=== PATIENT | female | born 1995 | race American Indian/Alaskan Native ===

== ENCOUNTER 2017-04-06 08:25 | Inpatient (IN) | payer MEDICAID ==
[2017-04-06 08:56] LABS: Urine Drugs of Abuse Note Disclamer
[2017-04-06 09:11] LABS: Bacteria,Urine 1+ /HPF (Negative); Bilirubin,Urine NEG (Negative); Blood,Urine NEG (Negative); Ketones,Urine NEG (Negative); Leukocyte Esterase,Urine LG (Negative); Mucus,Urine FEW /HPF; Nitrite,Urine NEG (Negative); Protein,Urine <15 mg/dL mg/dL (Negative); Urobilinogen,Urine < 2.0 mg/dL (<2.0)
--- NOTE | 2017-04-06 09:34 | History and Physical Report ---
History of Present Illness Date of examination: 04/06/17 Chief complaint: Painful contractions History of present illness: 21-year-old 001 at ~ 37+5 weeks presents with painful contractions, she is a drop-in patient with care with Dr. Daniels. In triage, no heart tones detected. Sonogram confirms no heart tones, IUFD. 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 denies: smoking, alcohol abuse, prescription drug abuse, IV drug use - Obstetrical History Expected Date of Delivery: 04/22/17 Actual Gestation: 37 Week(s) 5 Day(s) : 2 Para: 1 Number of Living Children: 1 Medications and Allergies Allergies Allergy/AdvReac Type Severity Reaction Status Date / Time No Known Allergies Allergy Verified 02/01/16 15:20 Review of Systems Constitutional: no fever, no chills, no fatigue, no weakness, no malaise, no lethargy, no chronic headaches Cardiovascular: no chest pain, no orthopnea, no palpitations, no rapid/ irregular heart beat, no syncope, no lightheadedness, no shortness of breath, no dyspnea on exertion, no paroxysmal nocturnal dyspnea, no high blood pressure Respiratory: no cough, no cough with sputum, no shortness of breath, no dyspnea on exertion Gastrointestinal: no abdominal pain, no nausea, no vomiting Genitourinary: contractions, no vaginal bleeding, no vaginal discharge, no leakage of fluid - Vital Signs Vital signs: Vital Signs Pulse Pulse Ox 87 98 04/06/17 08:49 04/06/17 08:49 Temp Pulse Resp BP Pulse Ox 98.0 F 146 H 18 122/77 100 04/06/17 08:55 04/06/17 09:24 04/06/17 08:55 04/06/17 08:50 04/06/17 09:24 - Physical Exam Cardiovascular: Regular rate, Normal S1, Normal S2 Lungs: Positive: Clear to auscultation, Normal air movement Abdomen: Positive: normal appearance, soft. Negative: distention, tenderness, guarding, rigidity Genitourinary (Female): Positive: normal external genitalia Vulva: both: normal Uterus: Positive: enlarged (EFW ~ 3500) Adnexa: both: normal Extremities: Positive: normal - Obstetrical FHR: other (No FHT) Cervical Dilatation: 5.5 station: -2 Results Abnormal lab results 04/06/17 Range/Units 08:30 Urine WBC (Auto) 8.0 H (0.0-6.0) /HPF U Epithel Cells (Auto) 18.0 H (0-13.0) /HPF All other labs normal. Assessment and Plan A: 21-year-old 001 at 37+5 with IUFD P: -Admit -Routine Labs -Epidural prn -Obtain records -Anticipate - Patient Problems (1) 37 weeks gestation of Current Visit: Yes Status: Acute (2) IUFD (intrauterine ) Current Visit: Yes Status: Acute
[2017-04-06] MEDS ORDERED: BRETHINE IVP PRN (09:35)
[2017-04-06] MEDS ORDERED: BRETHINE SUB-Q PRN (09:35)
[2017-04-06] MEDS ORDERED: XYLOCAINE 2% INFILTRATI ONE (09:35)
--- NOTE | 2017-04-06 09:57 | Ultrasound Report ---
OB LIMITED INDICATION: Verify heart tones. Unable to locate heart rate. COMPARISON: None similar at this institution. TECHNIQUE: Transabdominal grayscale ultrasound with Doppler interrogation. Gestation: Hernandez position: Cephalic Heart Rate: 0 BPM CONCLUSION: No heart tones obtainable, supporting clinical suspicion of demise. Please correlate.
[2017-04-06] MEDS ORDERED: ePHEDrine SULFATE IV PRN (10:00)
[2017-04-06] MEDS ORDERED: PITOCin/NS 30 UNIT/500ML 30 UNITS/500 ML BAG IV SCH ×2 (10:00)
[2017-04-06] MEDS ORDERED: PITOCin/NS 20 UNIT/1000ML DRIP 20 UNITS/1,000 ML BAG IV SCH ×2 (10:00→14:00)
[2017-04-06] MEDS ORDERED: LACTATED RINGERS 1,000 ML IV SCH (10:00)
[2017-04-06] MEDS: SUBLIMAZE IV PRN ×2 (11:00→12:55)
[2017-04-06 11:02] LABS: Hematocrit 32.9 % (30.3-42.9); Hemoglobin 10.8 gm/dl (10.1-14.3); Mean Corpuscular HGB Conc 33 % (30-34); Mean Corpuscular Hemoglobin 26 pg (28-32); Mean Corpuscular Volume 80 fl (79-97); Platelet Count 203 K/mm3 (140-440); Red Blood Count 4.13 M/mm3 (3.65-5.03); Red Cell Distribution Width 13.9 % (13.2-15.2); White Blood Count 9.3 K/mm3 (4.5-11.0)
[2017-04-06] MEDS ORDERED: fentaNYL-BUPIV 2 MCG/ML-0.125% 200 MCG/100 ML BAG EPIDURAL ONE (11:53)
[2017-04-06 12:08] LABS: HIV-1 Antigen p24 Non React (Non React); HIVR-1/2 Ab Non React (Non React)
[2017-04-06] MEDS ORDERED: XYLOCAINE MPF 2% ONE (12:18)
--- NOTE | 2017-04-06 13:11 | Procedure Note ---
OB Delivery Note - Delivery Date of Delivery: 04/06/17 Surgeon: LOUANN KINNEY Estimated blood loss: <100cc - Vaginal Delivery presentation: vertex Delivery position: OA Delivery induction: none Delivery augmentation: pitocin Delivery monitor: none Route of delivery: Delivery placenta: spontaneous Delivery cord: 3 umbilical vessels Episiotomy: none Delivery laceration: none Anesthesia: epidural Delivery comments: Delivery of term over intact perineum, Apgars 0 and 0. Patient with no obvious dysmorphic features, appears macerated and edematous consistent with demise of some duration. Small placenta with no obvious sign of abruption - Infant A at 1 minute: 0 (time of was 12:16, infant weight was 4 pounds 11 or 2142 g) at 5 minutes: 0 Gender: Female (IUFD at term)
[2017-04-06] MEDS ORDERED: ZOFRAN IV PRN (13:14)
[2017-04-06] MEDS ORDERED: DULCOLAX PR PRN (13:14)
[2017-04-06] MEDS ORDERED: TYLENOL PO PRN (13:14)
[2017-04-06] MEDS ORDERED: BENADRYL PO PRN (13:14)
[2017-04-06] MEDS ORDERED: LANSINOH TP PRN (13:14)
[2017-04-06] MEDS ORDERED: TUCKS PAD TP PRN (13:14)
[2017-04-06] MEDS ORDERED: MILK OF MAGNESIA PO PRN (13:14)
[2017-04-06] MEDS ORDERED: PHENERGAN PO PRN (13:14)
[2017-04-06] MEDS ORDERED: PHENERGAN PR PRN (13:34)
--- NOTE | 2017-04-06 13:50 | Event Note ---
Date: 04/06/17 Just obtained records from patient's provider. It appears she had limited care, first visit to her provider was at 35 weeks gestation and she had only 1 visit.
[2017-04-06] MEDS ORDERED: SODIUM CHLORIDE FLUSH SYRINGE 10 ML IV SCH (14:00)
--- NOTE | 2017-04-06 15:00 | Anesthesia Consultation ---
Anesthesia Consult and Med Hx Date of service: 04/06/17 - Airway Anesthetic Teeth Evaluation: Good ROM Head & Neck: Adequate Mental/Hyoid Distance: Adequate Mallampati Class: Class II Intubation Access Assessment: Probably Good - Pre-Operative Health Status ASA Pre-Surgery Classification: ASA3 Proposed Anesthetic Plan: Epidural, Spinal - Pulmonary Hx Asthma: No COPD: No Hx Pneumonia: No - Cardiovascular System Hx Hypertension: No - Central Nervous System Hx Seizures: No Hx Psychiatric Problems: No - Endocrine Hx Renal Disease: No Hx End Stage Renal Disease: No Hx Hypothyroidism: No Hx Hyperthyroidism: No - Hematic Hx Anemia: No Hx Sickle Cell Disease: No - Other Systems Hx Alcohol Use: No Hx Obesity: Yes (BMI 46.1)
[2017-04-06] MEDS: MOTRIN PO SCH ×2 (17:45→18:00)
[2017-04-06] MEDS: NORCO 5/325 PO PRN (20:33)
[2017-04-06] MEDS: SENOKOT S PO SCH (22:00)
[2017-04-06] MEDS ORDERED: MINERAL OIL PO PRN (22:00)
[2017-04-06] MEDS: FEOSOL PO SCH (22:00)
[2017-04-06] MEDS: COLACE PO SCH (22:00)
[2017-04-07] MEDS: FEOSOL PO SCH ×3 (00:45→21:58)
[2017-04-07] MEDS: MOTRIN PO SCH ×7 (00:45→21:57)
[2017-04-07] MEDS: COLACE PO SCH ×2 (00:46→21:57)
[2017-04-07 02:17] LABS: Hematocrit 30.4 % (30.3-42.9); Hemoglobin 9.8 gm/dl (10.1-14.3)
[2017-04-07] MEDS: NORCO 5/325 PO PRN ×3 (08:15→21:56)
[2017-04-07] MEDS: PRENATAL VITAMIN PO SCH (10:33)
--- NOTE | 2017-04-07 12:07 | Progress Note ---
Assessment and Plan PPD# 1 21-year-old 001 at 37+5 with IUFD P: -Continue routine care -Anticipate discharge in 24-48 hours - Patient Problems (1) (normal spontaneous vaginal delivery) Current Visit: Yes Status: Acute (2) 37 weeks gestation of Current Visit: Yes Status: Acute (3) IUFD (intrauterine ) Current Visit: Yes Status: Acute Subjective - Subjective Date of service: 04/07/17 Principal diagnosis: PPD# 1 Interval history: Since then examined, stable doing well. No further events of breath or chest pain no fever or chills, ambulating without difficulty adequate bowel bladder function Patient reports: appetite normal, voiding normally, pain well controlled, ambulating normally, no dizzy ambulation, no nauseated [place]: Objective - Vital Signs Latest vital signs: Vital Signs Temp Pulse Resp BP BP Pulse Ox 04/07/17 08:15 98.3 F 75 20 115/52 100 04/07/17 04:15 98.6 F 81 18 123/81 04/07/17 00:00 98.6 F 71 16 101/78 04/06/17 20:00 98.6 F 71 16 123/65 04/06/17 17:33 98.8 F 96 H 24 123/75 100 04/06/17 14:45 98.6 F 88 16 100/60 04/06/17 14:26 86 141/84 04/06/17 13:54 14 04/06/17 13:42 92 H 140/69 04/06/17 13:16 94 H 124/83 04/06/17 13:01 105 H 132/86 04/06/17 12:55 14 Intake and Output 04/06/17 04/07/17 04/07/17 23:59 07:59 15:59 Intake Total 750 120 Output Total 400 Balance -400 750 120 Intake: Oral 450 120 Intake, Free Water 300 Output: Urine 400 Void 400 Other: Total, Intake Amount 200 120 Total, Output Amount 400 # Voids Void 1 - Exam Abdomen: Present: normal appearance, soft. Absent: distention, tenderness, guarding, rigidity Uterus: Present: firm, fundal height below umbilicus. Absent: tenderness Extremities: Present: normal - Labs Labs: Abnormal lab results 04/07/17 Range/Units 01:35 Hgb 9.8 L (10.1-14.3) gm/dl
--- NOTE | 2017-04-07 12:08 | Discharge Summary ---
Providers - Providers Date of Admission: 04/06/17 09:46 Date of discharge: 04/08/17 Attending physician: LOUANN KINNEY Primary care physician: COTTON CHOPPER Hospitalization Reason for admission: active labor, IUFD Delivery: Episiotomy: none Laceration: none Other procedures: none complications: none Discharge diagnosis: intrapartum demise (at 37+5 weeks) baby: female (IUFD) Hospital course: Uncomplicated hospital course Condition at discharge: Good Disposition: DC-01 TO HOME OR SELFCARE - Discharge Diagnoses (1) (normal spontaneous vaginal delivery) Status: Acute (2) 37 weeks gestation of Status: Acute (3) IUFD (intrauterine ) Status: Acute Plan - Provider Discharge Summary Activity: no sex for 6 weeks, no heavy lifting 4 weeks, no strenuous exercise Diet: routine Additional instructions: [] Smoking cessation referral if applicable(refer to patient education folder for contact #) [] Refer to [facility] Call your doctor immediately for: * Fever > 100.5 * Heavy vaginal bleeding ( >1 pad per hour) * Severe persistent headache * Shortness of breath * Reddened, hot, painful area to leg or breast * Drainage or odor from incision. * Keep incision clean and dry at all times and follow doctor's instructions regarding bathing/showering - Follow up plan Follow up: PRIMARY CARE, [Primary Care Provider] - 7 Days
[2017-04-07] MEDS: SENOKOT S PO SCH (21:57)
[2017-04-08] MEDS: MOTRIN PO SCH (04:30)
[2017-04-08] MEDS: NORCO 5/325 PO PRN ×2 (04:30→10:56)
[2017-04-08 08:51] VITALS: BP 121/48
[2017-04-08] MEDS: COLACE PO SCH (10:56)
[2017-04-08] MEDS: PRENATAL VITAMIN PO SCH (10:56)
[2017-04-08] MEDS: FEOSOL PO SCH (10:56)
== END 2017-04-08 13:20 | disposition home or self-care (01) | DRG 775 ==
LOC: TRG 08:25 → LD 09:46 → OB 14:59
PROVIDERS: ADMIT Obstetrics & Gynecology Gynecology; ATTEND Obstetrics & Gynecology Gynecology
PROC: 10E0XZZ Delivery of Products of Conception, External Approach (ICD-10-PCS; principal; 2017-04-06)
PROC: 3E0R3BZ Introduction of Anesthetic Agent into Spinal Canal, Percutaneous Approach (ICD-10-PCS; 2017-04-06)
PROC: 00HU33Z Insertion of Infusion Device into Spinal Canal, Percutaneous Approach (ICD-10-PCS; 2017-04-06)
DX: O36.4XX0 Maternal care for intrauterine death, not applicable or unspecified (principal); O99.214 Obesity complicating childbirth; E66.9 Obesity, unspecified; Z37.1 Single stillbirth; Z3A.37 37 weeks gestation of pregnancy; Z68.42 Body mass index [BMI] 45.0-49.9, adult
CPT/HCPCS: 36415; 76815; 80307; 81001; 85014; 85018; 85027; 86592; 86706; 86762; 86850; 86900; 86901; 87806; 88307; J2590; J3010; J7120

== ENCOUNTER 2018-01-25 19:58 | Emergency (ER) | payer MEDICAID, OTHER ==
[2018-01-25] MEDS ORDERED: NACL 0.9% 1000 ML 1,000 ML IV ONE (20:19)
[2018-01-25 20:33] LABS: Basophils % (Auto) 0.5 % (0.0-1.8); Eosinophils # (Auto) 0.1 K/mm3 (0.0-0.4); Eosinophils % (Auto) 1.6 % (0.0-4.3); Hematocrit 32.4 % (30.3-42.9); Hemoglobin 10.8 gm/dl (10.1-14.3); Lymphocytes # (Auto) 1.5 K/mm3 (1.2-5.4); Lymphocytes % (Auto) 22.4 % (13.4-35.0); Mean Corpuscular HGB Conc 33 % (30-34); Mean Corpuscular Hemoglobin 26 pg (28-32); Mean Corpuscular Volume 78 fl (79-97); Monocytes # (Auto) 0.4 K/mm3 (0.0-0.8); Monocytes % (Auto) 5.9 % (0.0-7.3); Platelet Count 216 K/mm3 (140-440); Red Blood Count 4.15 M/mm3 (3.65-5.03); Red Cell Distribution Width 15.2 % (13.2-15.2)
[2018-01-25 21:07] LABS: Alanine Aminotransferase 5 units/L (7-56); Albumin 3.7 g/dL (3.9-5); BUN/Creatinine Ratio 12; Blood Urea Nitrogen 7 mg/dL (7-17); Hemolysis Index 1; Lipase 23 units/L (13-60)
[2018-01-25 21:09] LABS: Bilirubin,Urine NEG (Negative); Blood,Urine NEG (Negative); Color,Urine Yellow (Yellow); Mucus,Urine 3+ /HPF
[2018-01-25 21:12] LABS: RBC,Urine < 1.0 /HPF (0.0-6.0)
[2018-01-25] MEDS ORDERED: TYLENOL PO ONE (23:53)
--- NOTE | 2018-01-25 23:53 | Emergency Department Report ---
HPI - General Chief Complaint: Abdominal Pain Time Seen by Provider: 01/25/18 23:44 - HPI HPI: 22-year-old -Irish female presents to the emergency department with complaint of a 2 week history of some pelvic cramping and discomfort while . Patient had a positive home test around 2 weeks ago and has been having the symptoms since that time. She denies any vaginal bleeding, back pain, fever, nausea or vomiting. With this she is with one live child and one previous still . Her SIMONIZER is Dr. Deluca but she does not have an appointment until the . She has not taken anything for her symptoms prior to presentation. No recent travel or sick contacts at home. ED Past Medical Hx - Past Medical History Hx Hypertension: No Hx Congestive Heart Failure: No Hx Diabetes: No Hx Deep Vein Thrombosis: No Hx Renal Disease: No Hx Sickle Cell Disease: No Hx Seizures: No Hx Asthma: No Hx COPD: No Hx HIV: No Additional medical history: anemia - Social History Smoking Status: Never Smoker Substance Use Type: None - Medications Home Medications: Home Medications Medication Instructions Recorded Confirmed Last Taken Type Vit-Fe Fumar-FA [ 1 tab PO QDAY #30 tablet 01/26/18 Unknown Rx Vitamin] ED Review of Systems ROS: Stated complaint: PREG/UNKNOWN WKS/ABD PAIN Other details as noted in HPI Comment: All other systems reviewed and negative Constitutional: denies: chills, fever Eyes: denies: eye pain, eye discharge, vision change ENT: denies: ear pain, throat pain Respiratory: denies: cough, shortness of breath, wheezing Cardiovascular: denies: chest pain, palpitations Gastrointestinal: denies: nausea, vomiting Genitourinary: other (pelvic cramping / pain). denies: dysuria, discharge Musculoskeletal: denies: back pain, joint swelling, arthralgia Skin: denies: rash, lesions Neurological: denies: headache, weakness, paresthesias Physical Exam - Physical Exam Vital Signs: Vital Signs 01/25/18 01/25/18 20:07 20:16 Temperature 98.2 F 98.2 F Pulse Rate 72 65 Respiratory 18 18 Rate Blood Pressure 125/67 125/64 O2 Sat by Pulse 100 99 Oximetry Physical Exam: GENERAL: The patient is well-developed well-nourished. HENT: Normocephalic. Atraumatic. Patient has moist mucous membranes. EYES: Extraocular motions are intact. NECK: Supple. No meningitic signs are noted. There is no adenopathy noted. CHEST/LUNGS: Clear to auscultation. There is no respiratory distress noted. HEART/CARDIOVASCULAR: Regular. There is no tachycardia. There is no murmur. ABDOMEN: Abdomen is soft, nontender. Patient has normal bowel sounds. There is no abdominal distention. SKIN: Skin is warm and dry. NEURO: The patient is awake, alert, and oriented. The patient is cooperative. The patient has no focal neurologic deficits. The patient has normal speech. MUSCULOSKELETAL: There is no tenderness or deformity. There is no limitation range of motion. There is no evidence of acute injury. ED Course Vital Signs 01/25/18 01/25/18 20:07 20:16 Temperature 98.2 F 98.2 F Pulse Rate 72 65 Respiratory 18 18 Rate Blood Pressure 125/67 125/64 O2 Sat by Pulse 100 99 Oximetry ED Medical Decision Making - Lab Data Result diagrams: 01/25/18 20:22 01/25/18 20:22 - Radiology Data Radiology results: report reviewed EXAM: US OB TRANSVAGINAL HISTORY: preg, abd pain 1 TECHNIQUE: Transabdominal and transvaginal sonography of the pelvis. PRIORS: None. FINDINGS: There is a single, live intrauterine . Ultrasound estimated gestational age is 12 weeks 1 day. Ultrasound estimated date of confinement is 09 August 2018. heart motion is detected. The right ovary measures 8.1 x 6.4 x 7 cm and contains a rounded, cystic focus measuring approximately 6 cm and seen only on transabdominal examination. The left ovary measures 2.8 x 2.2 x 1.7 cm and is grossly unremarkable. Remainder of uterus and adnexa grossly unremarkable. IMPRESSION: 1. Single, live intrauterine . 2. Findings which may represent functional cystic change in the left ovary, but nonspecific. Clinical correlation and followup pelvic ultrasound in 6-10 weeks advised to document resolution. Transcribed By: ALYSE Dictated By: AMBROSIO IZAGUIRRE MD Electronically Authenticated By: AMBROSIO IZAGUIRRE MD Signed Date/Time: 01/26/18 0149 - Medical Decision Making Patient complains of about 2 weeks of pelvic cramping and a previous positive home urine test. No vaginal bleeding. Vital signs stable throughout her ED course. She has a healthy hormone level of 45,000. Transvaginal/obstetrical ultrasound was done that shows a single live intrauterine with a good heart rate detected. The rest patient' s labs are unremarkable as well. She has an appointment coming up with her OB/ [employer], Dr. Deluca. She will be started on vitamins. She has been encouraged to see the SIMONIZER in the next few days and to return to the emergency Department with any worsening of her symptoms, development of vaginal bleeding, or with any acute distress. - Differential Diagnosis , spontaneous miscarriage, threatened miscarriage, fibroids, UTI Critical Care Time: No Critical care attestation.: If time is entered above; I have spent that time in minutes in the direct care of this critically ill patient, excluding procedure time. ED Disposition Clinical Impression: Pelvic cramping Qualifiers: Weeks of gestation: 12 weeks Qualified Code(s): Z3A.12 - 12 weeks gestation of Disposition: - TO HOME OR SELFCARE Is pt being admited?: No Condition: Stable Instructions: (ED) Additional Instructions: Please follow-up with your SIMONIZER in the next few days if possible. I have started you on vitamins. You can take Tylenol every 4-6 hours, using weight-based dosing on the back of the bottle, as needed for discomfort. Otherwise do not take any other medications that are not prescribed or cleared by a physician. Return to the emergency Department with any worsening of your symptoms, development of vaginal bleeding, or with any acute distress. Prescriptions: Vit-Fe Fumar-FA [ Vitamin] 1 tab PO QDAY #30 tablet Referrals: LUISITO DELUCA MD [Referring] - 2-3 Days Time of Disposition: 02:00
[2018-01-26 00:59] VITALS: BP 122/62
--- NOTE | 2018-01-26 01:50 | Ultrasound Report ---
FINAL REPORT EXAM: US OB TRANSVAGINAL HISTORY: preg, abd pain 1 TECHNIQUE: Transabdominal and transvaginal sonography of the pelvis. PRIORS: None. FINDINGS: There is a single, live intrauterine . Ultrasound estimated gestational age is 12 weeks 1 day. Ultrasound estimated date of confinement is 09 August 2018. heart motion is detected. The right ovary measures 8.1 x 6.4 x 7 cm and contains a rounded, cystic focus measuring approximately 6 cm and seen only on transabdominal examination. The left ovary measures 2.8 x 2.2 x 1.7 cm and is grossly unremarkable. Remainder of uterus and adnexa grossly unremarkable. IMPRESSION: 1. Single, live intrauterine . 2. Findings which may represent functional cystic change in the left ovary, but nonspecific. Clinical correlation and followup pelvic ultrasound in 6-10 weeks advised to document resolution.
--- NOTE | 2018-01-26 01:51 | Ultrasound Report ---
FINAL REPORT EXAM: US OB < = 14 WEEKS FETUS HISTORY: preg, abd pain TECHNIQUE: Transabdominal sonography of the pelvis. PRIORS: None. FINDINGS: There is a single, live intrauterine . Ultrasound estimated gestational age is 12 weeks 1 day. Ultrasound estimated date of confinement is 09 August 2018. heart motion is detected. The right ovary measures 8.1 x 6.4 x 7 cm and contains a rounded, cystic focus measuring approximately 6 cm and seen only on transabdominal examination. The left ovary measures 2.8 x 2.2 x 1.7 cm and is grossly unremarkable. Remainder of uterus and adnexa grossly unremarkable. IMPRESSION: 1. Single, live intrauterine . 2. Findings which may represent functional cystic change in the right ovary, but nonspecific. Clinical correlation and followup pelvic ultrasound in 6-10 weeks advised to document resolution.
[2018-01-26] MEDS ORDERED: REGLAN ONE ×2 (02:25→02:26)
[2018-01-26] MEDS ORDERED: REGLAN PO ONE (02:25)
== END 2018-01-26 02:30 | disposition home or self-care (01) ==
LOC: ED 19:58
DX: O00.01 Abdominal pregnancy with intrauterine pregnancy (principal); Z3A.12 12 weeks gestation of pregnancy; Z86.2 Personal history of diseases of the blood and blood-forming organs and certain disorders involving the immune mechanism
CPT/HCPCS: 36415; 76801; 76817; 80053; 81001; 83690; 84702; 85025; 86900; 86901; 99284

== ENCOUNTER 2018-06-22 01:54 | Outpatient (CLI) | payer SELFPAY ==
[2018-06-22] MEDS ORDERED: LACTATED RINGERS 1,000 ML ONE (01:58)
[2018-06-22] MEDS ORDERED: LACTATED RINGERS 500 ML IV ONE (02:42)
[2018-06-22 03:27] LABS: Bilirubin,Urine NEG (Negative); Blood,Urine NEG (Negative); Color,Urine Amber (Yellow); Mucus,Urine 3+ /HPF
[2018-06-22 04:18] VITALS: BP 118/56
== END 2018-06-22 04:03 | disposition home or self-care (01) ==
LOC: TRG 01:54
PROVIDERS: ATTEND Obstetrics & Gynecology
DX: O47.03 False labor before 37 completed weeks of gestation, third trimester (principal); O10.013 Pre-existing essential hypertension complicating pregnancy, third trimester; Z3A.35 35 weeks gestation of pregnancy; Z87.891 Personal history of nicotine dependence
CPT/HCPCS: 59025; 81001; 96360; J7120

== ENCOUNTER 2018-06-24 14:19 | Outpatient (CLI) | payer SELFPAY ==
[2018-06-24 15:37] VITALS: BP 132/86
[2018-06-24] MEDS ORDERED: LACTATED RINGERS 500 ML IV ONE (15:46)
[2018-06-24 17:03] LABS: Bacteria,Urine 1+ /HPF (Negative); Bilirubin,Urine NEG (Negative); Blood,Urine NEG (Negative); Color,Urine Yellow (Yellow); Mucus,Urine 1+ /HPF; Protein,Urine <15 mg/dL mg/dL (Negative)
== END 2018-06-24 17:05 | disposition home or self-care (01) ==
LOC: TRG 14:19
PROVIDERS: ATTEND Obstetrics & Gynecology
DX: O47.03 False labor before 37 completed weeks of gestation, third trimester (principal); O10.013 Pre-existing essential hypertension complicating pregnancy, third trimester; Z3A.35 35 weeks gestation of pregnancy
CPT/HCPCS: 59025; 81001

== ENCOUNTER 2020-04-30 08:51 | Emergency (ER) | payer SELFPAY ==
[2020-04-30 09:07] VITALS: BP 118/84
[2020-04-30] MEDS ORDERED: SODIUM CHLORIDE 0.9% 1000 ML 1,000 ML IV ONE (09:31)
[2020-04-30] MEDS ORDERED: DICYCLOMINE 20 MG/2 ML INJ IM ONE (09:31)
[2020-04-30] MEDS ORDERED: ONDANSETRON 4 MG/2 ML INJ IV ONE (09:31)
--- NOTE | 2020-04-30 09:33 | Emergency Department Report ---
ED Abdominal Pain HPI - General Chief Complaint: Abdominal Pain Stated Complaint: STOMACH PAIN/NAUSEA Time Seen by Provider: 04/30/20 09:26 Source: patient Mode of arrival: Ambulatory Limitations: No Limitations - History of Present Illness Initial Comments: This is a very pleasant 24-year-old female presents the emergency department chief complaint of nausea, vomiting, diarrhea over the past 3 days. She also reports she started her menstrual cycle 2 days ago and has been having some lower abdominal cramping from that. States she has not been able to hold anything down over the past 3 days. She does states she is very hungry but unable to eat. She reports she is also having some intermittent cramping to the upper abdomen that is worse when she tries to eat and vomit. She reports the pain will occasionally radiate up into the chest especially when she vomits. She denies any known past medical history, current medication use or known all ergies medications. She denies any associated fever, chills, night sweats, headache, dizziness, blurry vision, shortness of breath, hematemesis, melena, hematochezia, weakness or any other associated symptoms. She denies any previous surgeries. - Related Data Previous Rx's Medication Instructions Recorded Last Taken Type Vit-Fe Fumar-FA [ 1 tab PO QDAY #30 tablet 01/26/18 Unknown Rx Vitamin] Dicyclomine [Bentyl] 10 mg PO QID #15 capsule 04/30/20 Unknown Rx Ondansetron [Zofran Odt] 4 mg PO Q8HR #30 tab.rapdis 04/30/20 Unknown Rx Allergies Allergy/AdvReac Type Severity Reaction Status Date / Time No Known Allergies Allergy Verified 02/01/16 15:20 ED Review of Systems ROS: Stated complaint: STOMACH PAIN/NAUSEA Other details as noted in HPI Comment: All other systems reviewed and negative Constitutional: denies: chills, fever Eyes: denies: eye pain, eye discharge, vision change ENT: denies: ear pain, throat pain Respiratory: denies: cough, shortness of breath, wheezing Cardiovascular: denies: chest pain, palpitations Endocrine: no symptoms reported Gastrointestinal: as per HPI, abdominal pain, nausea, vomiting, diarrhea Genitourinary: denies: urgency, dysuria, discharge Musculoskeletal: denies: back pain, joint swelling, arthralgia Skin: denies: rash, lesions Neurological: denies: headache, weakness, paresthesias Psychiatric: denies: anxiety, depression Hematological/Lymphatic: denies: easy bleeding, easy bruising ED Past Medical Hx - Past Medical History Previous Medical History?: Yes Hx Hypertension: Yes Hx Congestive Heart Failure: No Hx Diabetes: No Hx Deep Vein Thrombosis: No Hx Renal Disease: No Hx Sickle Cell Disease: No Hx Seizures: No Hx Asthma: No Hx COPD: No Hx HIV: No Additional medical history: anemia - Social History Smoking Status: Never Smoker Substance Use Type: None - Medications Home Medications: Home Medications Medication Instructions Recorded Confirmed Last Taken Type Vit-Fe Fumar-FA [ 1 tab PO QDAY #30 tablet 01/26/18 Unknown Rx Vitamin] Dicyclomine [Bentyl] 10 mg PO QID #15 capsule 04/30/20 Unknown Rx Ondansetron [Zofran Odt] 4 mg PO Q8HR #30 tab.rapdis 04/30/20 Unknown Rx ED Physical Exam - General Limitations: No Limitations General appearance: alert, in no apparent distress - Head Head exam: Present: atraumatic, normocephalic - Eye Eye exam: Present: normal appearance, PERRL, EOMI Pupils: Present: normal accommodation - ENT ENT exam: Present: normal exam, normal orophraynx, mucous membranes moist - Neck Neck exam: Present: normal inspection, full ROM. Absent: tenderness, meningismus - Respiratory Respiratory exam: Present: normal lung sounds bilaterally. Absent: respiratory distress, wheezes, rales, rhonchi, stridor - Cardiovascular Cardiovascular Exam: Present: regular rate, normal rhythm, normal heart sounds. Absent: systolic murmur, diastolic murmur, rubs, gallop - GI/Abdominal GI/Abdominal exam: Present: soft, tenderness (Mild tenderness to the epigastrium, no rebound or guarding, negative Moss sign, negative McBurney's point tenderness), normal bowel sounds. Absent: distended, guarding, rebound, rigid - Extremities Exam Extremities exam: Present: normal inspection, full ROM, normal capillary refill. Absent: tenderness - Back Exam Back exam: Present: normal inspection, full ROM. Absent: tenderness, CVA tenderness (R), CVA tenderness (L) - Neurological Exam Neurological exam: Present: alert, oriented X3, normal gait - Psychiatric Psychiatric exam: Present: normal affect, normal mood - Skin Skin exam: Present: warm, dry, intact, normal color. Absent: rash ED Course Vital Signs 04/30/20 09:05 Temperature 98.4 F Pulse Rate 55 L Respiratory 16 Rate Blood Pressure 118/84 [Right] O2 Sat by Pulse 100 Oximetry ED Medical Decision Making - Lab Data Result diagrams: 04/30/20 10:09 04/30/20 10:09 Lab Results 04/30/20 04/30/20 04/30/20 Range/Units 10:09 10:09 Unknown WBC 5.6 (4.5-11.0) K/mm3 RBC 4.41 (3.65-5.03) M/mm3 Hgb 11.4 (10.1-14.3) gm/dl Hct 35.1 (30.3-42.9) % MCV 80 (79-97) fl MCH 26 L (28-32) pg MCHC 33 (30-34) % RDW 15.4 H (13.2-15.2) % Plt Count 210 (140-440) K/mm3 Lymph % (Auto) 26.4 (13.4-35.0) % [place] % (Auto) 4.9 (0.0-7.3) % Eos % (Auto) 1.1 (0.0-4.3) % Baso % (Auto) 0.4 (0.0-1.8) % Lymph # (Auto) 1.5 (1.2-5.4) K/mm3 [place] # (Auto) 0.3 (0.0-0.8) K/mm3 Eos # (Auto) 0.1 (0.0-0.4) K/mm3 Baso # (Auto) 0.0 (0.0-0.1) K/mm3 Seg Neutrophils % 67.2 (40.0-70.0) % Seg Neutrophils # 3.8 (1.8-7.7) K/mm3 Sodium 139 (137-145) mmol/L Potassium 4.2 (3.6-5.0) mmol/L Chloride 108.8 H (98-107) mmol/L Carbon Dioxide 23 (22-30) mmol/L Anion Gap 11 mmol/L BUN 10 (7-17) mg/dL Creatinine 0.6 (0.6-1.2) mg/dL Estimated GFR > 60 ml/min BUN/Creatinine Ratio 17 % Glucose 96 (65-100) mg/dL Calcium 8.9 (8.4-10.2) mg/dL Total Bilirubin 0.20 (0.1-1.2) mg/dL AST 10 (5-40) units/L ALT 8 (7-56) units/L Alkaline Phosphatase 44 (35-129) units/L Total Protein 6.9 (6.3-8.2) g/dL Albumin 3.7 L (3.9-5) g/dL Albumin/Globulin Ratio 1.2 % Lipase 21 (13-60) units/L Urine Color Yellow (Yellow) Urine Turbidity Slightly-cloudy (Clear) Urine pH 6.0 (5.0-7.0) Ur Specific [place] 1.025 (1.003-1.030) Urine Protein 30 mg/dl (Negative) mg/dL Urine Glucose (UA) Neg (Negative) mg/dL Urine Ketones Neg (Negative) mg/dL Urine Blood Lg (Negative) Urine Nitrite Neg (Negative) Ur Reducing Substances Not Reportable Urine Bilirubin Neg (Negative) Urine Ictotest Not Reportable Urine Urobilinogen < 2.0 (<2.0) mg/dL Ur Leukocyte Esterase Neg (Negative) Urine WBC (Auto) 10.0 H (0.0-6.0) /HPF Urine RBC (Auto) > 182.0 (0.0-6.0) /HPF U Epithel Cells (Auto) 14.0 H (0-13.0) /HPF Urine Bacteria (Auto) 2+ (Negative) /HPF Urine Mucus 1+ /HPF Urine HCG, Qual Negative (Negative) - Medical Decision Making Patient nontoxic in no acute distress. Vital signs are stable. She reports very significant improvement in her symptoms after IV fluids, Zofran and Bentyl. Repeat abdominal exam shows a soft abdomen with no rebound or guarding. She felt better want to go home. She had no right lower quadrant tenderness, no elevation of white blood cell count and a low Lucas score making acute appendicitis low on my differential. She had no right upper quadrant tenderness, normal LFTs, no fever or elevated white blood cell count making cho lecystitis unlikely. She had a normal lipase making pancreatitis unlikely. She was tolerating p.o. fluids prior to discharge and had a soft abdomen with normal bowel sounds making small bowel obstruction unlikely. She had no lower abdominal tenderness, no vaginal discharge making PID or TOA unlikely. There was a negative test ruling out ectopic . Patient felt much better when to go home. We will send her home with Leticia and Jair and recommended increase p.o. hydration and outpatient follow-up with primary care doctor. I also educated her that she had a few white blood cells in her urine however this appears to be a contaminated sample. Recommended that she follow- up with the medical clinic for following of that culture. - Differential Diagnosis Enteritis, appendicitis, small bowel obstruction Critical care attestation.: If time is entered above; I have spent that time in minutes in the direct care of this critically ill patient, excluding procedure time. ED Disposition Clinical Impression: Nausea vomiting and diarrhea Disposition: DC- TO HOME OR SELFCARE Is pt being admited?: No Condition: Stable Instructions: Abdominal Pain (ED), Nausea and Vomiting, Adult Prescriptions: Dicyclomine [Bentyl] 10 mg PO QID #15 capsule Ondansetron [Zofran Odt] 4 mg PO Q8HR #30 tab.rapdis Forms: Work/School Release Form(ED) Time of Disposition: 11:42
[2020-04-30 10:39] LABS: Basophils % (Auto) 0.4 % (0.0-1.8); Eosinophils # (Auto) 0.1 K/mm3 (0.0-0.4); Eosinophils % (Auto) 1.1 % (0.0-4.3); Hematocrit 35.1 % (30.3-42.9); Hemoglobin 11.4 gm/dl (10.1-14.3); Lymphocytes # (Auto) 1.5 K/mm3 (1.2-5.4); Lymphocytes % (Auto) 26.4 % (13.4-35.0); Mean Corpuscular HGB Conc 33 % (30-34); Mean Corpuscular Volume 80 fl (79-97); Monocytes # (Auto) 0.3 K/mm3 (0.0-0.8); Monocytes % (Auto) 4.9 % (0.0-7.3); Platelet Count 210 K/mm3 (140-440); Red Blood Count 4.41 M/mm3 (3.65-5.03); Red Cell Distribution Width 15.4 % (13.2-15.2)
[2020-04-30 11:01] LABS: Alanine Aminotransferase 8 units/L (7-56); Albumin 3.7 g/dL (3.9-5); Blood Urea Nitrogen 10 mg/dL (7-17); Calcium 8.9 mg/dL (8.4-10.2); Hemolysis Index 4
[2020-04-30 11:08] LABS: BUN/Creatinine Ratio 17
[2020-04-30 11:29] LABS: HCG Qualitative,Urine Negative (Negative)
[2020-04-30 11:33] LABS: Bacteria,Urine 2+ /HPF (Negative); Bilirubin,Urine NEG (Negative); Blood,Urine LG (Negative); Color,Urine Yellow (Yellow); Mucus,Urine 1+ /HPF; Urobilinogen,Urine < 2.0 mg/dL (<2.0)
[2020-04-30 11:34] LABS: RBC,Urine > 182.0 /HPF (0.0-6.0)
== END 2020-04-30 11:52 | disposition home or self-care (01) ==
LOC: ED 08:51
DX: R10.30 Lower abdominal pain, unspecified (principal); R11.2 Nausea with vomiting, unspecified; R19.7 Diarrhea, unspecified
CPT/HCPCS: 36415; 80053; 81001; 81025; 83690; 85025; 87086; 96361; 96372; 96374; 99283; J0500; J2405; J7030

== ENCOUNTER 2021-10-29 21:56 | Emergency (ER) | payer SELFPAY ==
[2021-10-29 23:06] VITALS: BP 113/59
[2021-10-29 23:43] LABS: Basophils % (Auto) 0.6 % (0.0-1.8); Eosinophils # (Auto) 0.2 K/mm3 (0.0-0.4); Eosinophils % (Auto) 2.8 % (0.0-4.3); Hematocrit 37.2 % (30.3-42.9); Hemoglobin 11.9 gm/dl (10.1-14.3); Lymphocytes # (Auto) 2.1 K/mm3 (1.2-5.4); Mean Corpuscular HGB Conc 32 % (30-34); Mean Corpuscular Volume 81 fl (79-97); Monocytes # (Auto) 0.4 K/mm3 (0.0-0.8); Monocytes % (Auto) 7.2 % (0.0-7.3); Platelet Count 236 K/mm3 (140-440); Red Blood Count 4.61 M/mm3 (3.65-5.03); Red Cell Distribution Width 14.2 % (13.2-15.2)
[2021-10-30 02:18] LABS: Amorphous Crystals,Urine 3+; Bilirubin,Urine NEG (Negative); Blood,Urine SM (Negative); Color,Urine Yellow (Yellow)
== END 2021-10-30 05:19 | disposition left against medical advice (07) ==
LOC: ED 21:56
DX: N93.9 Abnormal uterine and vaginal bleeding, unspecified (principal); R10.2 Pelvic and perineal pain; Z53.21 Procedure and treatment not carried out due to patient leaving prior to being seen by health care provider
CPT/HCPCS: 36415; 81001; 84702; 84703; 85025; 86900; 86901